=== PATIENT | male | born 1980 | race Two or more races ===

== ENCOUNTER 2019-09-03 09:27 | Emergency (ER) | payer MEDICAID ==
[~2019-09-03] VITALS: Ht 177.8 cm; Wt 84.1 kg
[2019-09-03] MEDS ORDERED: ONDANSETRON HCL 4 MG TABLET PO ONE (09:45)
[2019-09-03] MEDS ORDERED: PB/HYOSCY/ATR/SCOP/LIDO/MAALOX 55 ML BOTTLE PO ONE (09:45)
[2019-09-03 10:03] LABS: GLUCOSE,POINT OF CARE 133 MG/DL (70-110)
[2019-09-03 12:32] LABS: AMPHET/METH SCREEN,URINE NEGATIVE (NEGATIVE); BARBITURATE SCREEN, URINE NEGATIVE (NEGATIVE); BENZODIAZEPINES SCREEN,URINE NEGATIVE (NEGATIVE); CANNABINOID SCREEN,URINE POSITIVE (NEGATIVE); COCAINE SCREEN,URINE NEGATIVE (NEGATIVE); METHADONE SCREEN, URINE NEGATIVE (NEGATIVE); OPIATE SCREEN,URINE NEGATIVE (NEGATIVE)
[2019-09-03 12:39] LABS: PHENCYCLIDINE SCREEN,URINE NEGATIVE (NEGATIVE)
[2019-09-03 12:56] VITALS: BP 120/87
== END 2019-09-03 12:55 | disposition home or self-care (01) ==
LOC: EMS 09:29
DX: F12.90 Cannabis use, unspecified, uncomplicated (principal); R11.2 Nausea with vomiting, unspecified
CPT/HCPCS: 80307; 82962; 99285; Q0162; 82948